=== PATIENT | male | born 2005 | race Caucasian/White ===

== ENCOUNTER 2025-10-03 17:09 | Outpatient (REF) | payer OTHER, SELFPAY ==
--- NOTE | ~2025-10-03 | MR_ITS ---
EXAMINATION: MR SHOULDER WITHOUT CONTRAST, RIGHT CLINICAL INFORMATION: Shoulder pain, instability COMPARISON: None available. TECHNIQUE: MRI of the shoulder without contrast was performed on a high-field scanner. FINDINGS: ROTATOR CUFF: Supraspinatus: Mild tendinosis. Infraspinatus: Intact Teres minor: Subscapularis: Mild tendinosis No muscle atrophy or fatty infiltration. BICEPS: Intact CORACOACROMIAL ARCH: The undersurface of the acromion is mildly curved with no subacromial spur. The acromioclavicular joint is normal. LABRUM/CAPSULE: No displaced labral tear is identified. Inferior capsule is intact GLENOHUMERAL JOINT/MARROW: No evidence of acute fracture. No gross aggressive marrow replacing lesion. Small focus of chondral thinning in the posterior glenoid. Small joint fluid. 7 x 6 mm low signal focus in the inferior joint space, concerning for loose body.. Subcentimeter axillary lymph nodes. MR/MR shoulder RT wo con IMPRESSION: * Mild supraspinatus and subscapularis tendinosis. No measurable tendon tear or retraction is seen. * No displaced labral tear is seen. * Small focus of chondral thinning in the posterior glenoid. * Small glenohumeral joint fluid. 7 x 6 cm low signal focus in the inferior joint space could represent a loose body. Electronically signed by: Tony Stewart MD 10/04/2025 11:17 AM CHRIS
--- OUTSIDE RECORDS SUMMARY | 2025-10-04 13:34 | XMS_ITS | Clinical Summary ---
Author Organization [facility] Address [address] [place] [address] Care Team Providers Care Video Editor Name Role Phone Unavailable Primary Care Provider Unavailabl e Allergies No known active allergies Medications chlorhexidine (PERIDEX) 0.12 % solution Use 15 mL in the mouth or throat in the morning and at bedtime. 480 mL 05/07/2022 Active HYDROcodone-mary grace taminophen (NORCO) 5-325 mg tabletIndicatio ns:pain Take 1 tablet by mouth every 6 (six) hours if needed for severe pain. 12 tablet 05/07/2022 Active Active Problems No known active problems Social History Tobacco Use Types Packs/Day Years Used Date Smoking Tobacco: Never Smokeless Tobacco: Never Tobacco Cessation:Counseling Given: Not Answered Alcohol Use Standard Drinks/Week Comments Never 0 (1 standard drink = 0.6 oz pur e alcohol) Sex and Gender Information Value Date Recorded Sex Assigned at Not on file Legal Sex Male 9:25 AM PDT Gender Identity Not on file Sexual Orientation Not on file Last Filed Vital Signs Vital Sign Reading Time Taken Comments Blood Pressure 122/66 04/20/2023 10:35 AM EDT Pulse 66 04/20/2023 10:35 AM EDT Temperature 36.5 C (97.7 F) 04/25/2022 1:44 PM EDT Respiratory Rate - - Oxygen Saturation - - Inhaled Oxygen Concentration - - Weight - - Height - - Body Mass Index - - Plan of Treatment Health Maintenance Due Date Last Done Comments Velscope Screening 10/25/2022 04/25/2022 Dental Oral Exam 10/21/2023 04/20/2023, 04/25/2022 Dental Prophylaxis 10/21/2023 04/20/2023, 04/25/2022 Dental X-Ray: Bitewings 10/21/2023 04/20/2023 Dental X-Ray: Panoramic 04/26/2025 04/25/2022 Dental X-Ray: Full Mouth 04/21/2026 04/20/2023, 04/16 Procedures Procedure Name Priority Date/Time Associated Diagnosis Comments PROPHYLAXIS - ADULT Routine 04/20/2023 1 0:30 AM EDT PERIODIC ORAL EVALUATION - ESTABLISHED PATIENT Routine 04/20/2023 10:30 AM EDT PANORAMIC RADIOGRAPHIC IMAGE Routine 04/25/2022 1:30 PM EDT ADJUNCTIVE PRE-DIAGNOSTIC TEST THAT AIDS IN DETECTION OF MUCOSAL ABNORMALITIES Routine 04/25/2022 1:30 PM EDT INTRAORAL - COMPREHENSIVE SERIES OF RADIOGRAPHIC IMAGES Routine 04/25/2022 1:30 PM EDT from Last 3 Months or Most Recently Relevant to Health Maintenance Insurance [facility]
--- OUTSIDE RECORDS SUMMARY | 2025-10-04 13:34 | XMS_ITS | Encounter Summary ---
Author Organization [facility] Address [address] [place] [address] Phone Care Team Providers Care Supervisor Mirror Fabrication Name Role Phone Pcp, Unknown Primary Care Provider Unavailabl e Reason for Referral * MRI/CAT Scan - Closed Specialty Diagnoses / Procedures Referred By Contac t Referred To Contact Radiology Diagnoses Pain in right ankle and joints of right foot Procedures MRI Ankle (Right) Rodolfo Juarez DO [address] [place] [address] Phone: tel: fax: mailto: .Family [facility] Referral ID Status Reason Start Date Expiration Date Visits Re quested Visits Authorized [id number] Closed 03/21/2025 03/21/2026 1 1 * MRI/CAT Scan - Closed Specialty Diagnoses / Procedures Referred By Nikhil redd Referred To Contact Radiology Diagnoses Pain in left ankle and joints of left foot Procedures MRI Ankle (Left) Rodolfo Juarez DO [address] [place], [place] Phone: tel: fax: mailto: Referral ID Status Reason Start Date Expiration Date Visits Re quested Visits Authorized [id number] Closed 03/21/2025 03/21/2026 1 1 Encounter Details Date Type Department Care Team (Late st Contact Info) Description 03/21/2025 Transcribe Orders [facility] [address] [place] [address] Rodolfo Juarez DO [address] [place] [address] Pain in left ankle and joints of left foot (Primary Dx); Pain in right ankle and joints of right foot Social History Tobacco Use Types Packs/Day Years Used Date Smoking Tobacco: Never Assessed Education Answer Date Recorded Are you interested in more education? Not on rosendo e 03/21/2025 Are you concerned about learning? Not on file 03/21/2025 No 03/21/2025 No 03/21/2025 Digital Access Answer Date Recorded No 03/21/2025 No 03/21/2025 Reliable internet access at home? Not on file 03/21/2025 Device with a working camera? Not on file Sex and Gender Information Value Date Recorded Sex Assigned at Not on file Legal Sex Male 3:56 PM EDT Gender Identity Not on file Sexual Orientation Not on file documented as of this encounter Plan of Treatment Not on file documented as of this encounter Results * MRI ANKLE WITHOUT CONTRAST (RIGHT) (03/23/2025 8:43 AM EDT) Anatomical Region Laterality Modality Ankle Right Magnetic Resonan ce 03/24/2025 9:22 AM EDT Impressions 03/24/2025 9:58 AM EDT Subcutaneous edema overlying the medial malleolus with possible early bursal formation. No discrete organized fluid collection. Narrative 03/24/2025 9:58 AM EDT MRI ANKLE WITHOUT CONTRAST (RIGHT) Referring clinician's provided indication for this examination in Epic: Outside Radiology Order; right ankle pain TECHNIQUE: Multi-sequence, multi-planar MRI of the ankle without intravenous contrast. COMPARISON: None FINDINGS: Lateral ligaments: Anterior talofibular, calcaneofibular, and posterior talofibular ligaments are intact. Syndesmotic ligaments are intact. Medial ligaments: Deltoid complex and spring ligaments are intact. Plantar fascia: Normal. Peroneal tendons: Peroneus longus and brevis are intact. Flexor tendons: Posterior tibialis, flexor digitorum longus, and flexor hallucis longus are intact. Extensor tendons: Anterior tibialis, extensor hallucis longus, and extensor digitorum longus are intact. Achilles tendon: Normal. Bone: No fracture, osteonecrosis, or suspicious focal lesion. Cystic changes are noted within the posterior aspect of the tibial retromalleolar groove, likely reactive. Joints: Small tibiotalar and subtalar joint effusions without synovitis. No focal cartilage defect or subchondral edema. Soft tissues: Subcutaneous edema is noted overlying the proximal aspect of the medial malleolus. Central punctate fluid may reflect early bursal formation. No discrete organized fluid collection. Procedure Note Jesus Bowman MD - 03/24/2025 MRI ANKLE WITHOUT CONTRAST (RIGHT) Referring clinician's provided indication for this examination in Epic:Outside Radiology Order; right ankle pain TECHNIQUE: Multi-sequence, multi-planar MRI of the ankle withoutintravenous contrast. COMPARISON: None FINDINGS: Lateral ligaments: Anterior talofibular, calcaneofibular, and posteriortalofibular ligaments are intact. Syndesmotic ligaments are intact. Medial ligaments: Deltoid complex and spring ligaments are intact. Plantar fascia: Normal. Peroneal tendons: Peroneus longus and brevis are intact. Flexor tendons: Posterior tibialis, flexor digitorum longus, and flexorhallucis longus are intact. Extensor tendons: Anterior tibialis, extensor hallucis longus, andextensor digitorum longus are intact. Achilles tendon: Normal. Bone: No fracture, osteonecrosis, or suspicious focal lesion. Cysticchanges are noted within the posterior aspect of the tibial retromalleolargroove, likely reactive. Joints: Small tibiotalar and subtalar joint effusions without synovitis.No focal cartilage defect or subchondral edema. Soft tissues: Subcutaneous edema is noted overlying the proximal aspect ofthe medial malleolus. Central punctate fluid may reflect early bursalformation. No discrete organized fluid collection. IMPRESSION: Subcutaneous edema overlying the medial malleolus with possible earlybursal formation. No discrete organized fluid collection. Rodolfo Juarez DO IMG MR EXTREMITY Final Result * MRI ANKLE WITHOUT CONTRAST (LEFT) (03/23/2025 8:39 AM EDT) Anatomical Region Laterality Modality Ankle Left Magnetic Resonan ce 03/24/2025 9:10 AM EDT Impressions 03/24/2025 9:58 AM EDT Findings most suggestive of medial malleolar bursitis. Narrative 03/24/2025 9:58 AM EDT MRI ANKLE WITHOUT CONTRAST (LEFT) Referring clinician's provided indication for this examination in [facility]: Outside Radiology Order; left ankle pain TECHNIQUE: Multi-sequence, multi-planar MRI of the ankle without intravenous contrast. COMPARISON: None FINDINGS: Lateral ligaments: Anterior talofibular, calcaneofibular, and posterior talofibular ligaments are intact. Syndesmotic ligaments are intact. Medial ligaments: Deltoid complex and spring ligaments are intact. Plantar fascia: Normal. Peroneal tendons: Peroneus longus and brevis are intact. Flexor tendons: Posterior tibialis, flexor digitorum longus, and flexor hallucis longus are intact. Extensor tendons: Anterior tibialis, extensor hallucis longus, and extensor digitorum longus are intact. Achilles tendon: Normal. Bone: No fracture, osteonecrosis, or focal lesion. Joints: Small tibiotalar and subtalar joint effusions without synovitis. No focal cartilage defect or subchondral edema. Soft tissues: 2.2 x 0.7 x 3.0 cm multiloculated fluid collection with internal debris within the subcutaneous fat overlying the medial malleolus. There is surrounding subcutaneous edema. Procedure Note Jesus Bowman MD - 03/24/2025 MRI ANKLE WITHOUT CONTRAST (LEFT) Referring clinician's provided indication for this examination in [facility]:Outside Radiology Order; left ankle pain TECHNIQUE: Multi-sequence, multi-planar MRI of the ankle withoutintravenous contrast. COMPARISON: None FINDINGS: Lateral ligaments: Anterior talofibular, calcaneofibular, and posteriortalofibular ligaments are intact. Syndesmotic ligaments are intact. Medial ligaments: Deltoid complex and spring ligaments are intact. Plantar fascia: Normal. Peroneal tendons: Peroneus longus and brevis are intact. Flexor tendons: Posterior tibialis, flexor digitorum longus, and flexorhallucis longus are intact. Extensor tendons: Anterior tibialis, extensor hallucis longus, andextensor digitorum longus are intact. Achilles tendon: Normal. Bone: No fracture, osteonecrosis, or focal lesion. Joints: Small tibiotalar and subtalar joint effusions without synovitis.No focal cartilage defect or subchondral edema. Soft tissues: 2.2 x 0.7 x 3.0 cm multiloculated fluid collection withinternal debris within the subcutaneous fat overlying the medialmalleolus. There is surrounding subcutaneous edema. IMPRESSION: Findings most suggestive of medial malleolar bursitis. Rodolfo Juarez DO IMG MR EXTREMITY Final Result documented in this encounter Visit Diagnoses Diagnosis Pain in left ankle and joints of left foot- Primary Pain in right ankle and joints of right foot Pain in right ankle and joints of right foot Pain in left ankle and joints of left foot documented in this encounter Care Teams Supervisor [employer] Relationship Specialty Start Date End Date Pcp, Unknown PCP - General 03/20/25 documented as of this encounter Additional Source Comments The information contained in this document represents components of the legal health record. It is not the complete legal health record.[facility]
--- OUTSIDE RECORDS SUMMARY | 2025-10-04 13:34 | XMS_ITS | Clinical Summary ---
Author Organization [facility] Address [address] [facility] [address] [place] [id number] Phone Care Team Providers Care C Unix Developer Name Role Phone Pcp, Unknown Primary Care Provider Unavailabl e Social History Tobacco Use Types Packs/Day Years [...] Sign Reading Time Taken Comments Blood Pressure - - Pulse - - Temperature - - Respiratory Rate - - Oxygen Saturation - - Inhaled Oxygen Concentration - - Weight 81.6 kg (180 lb) 03/21/2025 1:03 PM EDT Height 177.8 cm (5' 10 ) 03/21/2025 1:03 PM EDT Body Mass Index 25.83 03/21/2025 1:03 PM EDT Plan of Treatment Not on file Medical Devices Not on file Insurance ELIAN WILKINS [facility] [place] [address] [facility] Care Teams C Unix Developer Relationship Specialty Start Date End Date Pcp, Unknown PCP - General 03/20/25 Additional Source Comments The information contained in this document represents components of the legal health record. It is not the complete legal health record.[facility]
--- OUTSIDE RECORDS SUMMARY | 2025-10-04 13:34 | XMS_ITS | Encounter Summary ---
Author Organization [facility] Address [address] [place] [address] Care Team Providers Care Electrical And Instrument Engineer Name Role Phone Unavailable Primary Care Provider Unavailabl e Prior Encounters Date Type Department Care Team Description 04/20/2023 10:30 AM EDT Office Visit [place] [facility] [address], [facility] [address] [place] [address] Yasmin De Jesus, [facility] 04/20/2023 10:30 AM EDT Office Visit [facility] [address], [facility] [address] [place] [address] Shannon Cano DDS 05/07/2022 Travel 05/07/2022 12:00 PM EDT Office Visit [facility] [address], [facility] [address] [place] [address] Francisco Contreras DMD MD 04/25/2022 Travel 04/25/2022 1:30 PM EDT Office Visit [facility] [address], [facility] [address] [place] [address] Shannon Cano DDS Last Filed Vital Signs Vital Sign Reading Time Taken Comments Blood Pressure 122/66 04/20/2023 10:35 AM EDT Pulse 66 04/20/2023 10:35 AM EDT Temperature 36.5 C (97.7 F) 04/25/2022 1:44 PM EDT Respiratory Rate - - Oxygen Saturation - - Inhaled Oxygen Concentration - - Weight - - Height - - Body Mass Index - - Plan of Treatment Not on file Procedures Procedure Name Priority Date/Time Associated Diagnosis Comments INTRAORAL PHOTO Routine 04/20/2023 10:30 AM EDT INTRAORAL PHOTO Routine 04/20/2023 10:30 AM EDT INTRAORAL PHOTO Routine 04/20/2023 10:30 AM EDT INTRAORAL PHOTO Routine 04/20/2023 10:30 AM EDT BITEWINGS - FOUR RADIOGRAPHIC IMAGES Routine 04/20/2023 10:30 AM EDT ADDITIONAL X-RAY Routine 04/20/2023 10:3 0 AM EDT ADDITIONAL X-RAY Routine 04/20/2023 10:3 0 AM EDT ADDITIONAL X-RAY Routine 04/20/2023 10:3 0 AM EDT ADDITIONAL X-RAY Routine 04/20/2023 10:3 0 AM EDT ADDITIONAL X-RAY Routine 04/20/2023 10:3 0 AM EDT SINGLE X-RAY Routine 04/20/2023 10:30 AM EDT PERIODIC ORAL EVALUATION - ESTABLISHED PATIENT Routine 04/20/2023 10:30 AM EDT PROPHYLAXIS - ADULT Routine 04/20/2023 1 0:30 AM EDT ORAL HYGIENE INSTRUCTIONS Routine 2022 10:30 AM EDT 16 EXTRACTION, ERUPTED TOOTH REQUIRING REMOVAL OF BONE AND/OR SECTIONING OF TOOTH Routine 05/07/2022 12:00 PM EDT 1 EXTRACTION, ERUPTED TOOTH REQUIRING REMOVAL OF BONE AND/OR SECTIONING OF TOOTH Routine 05/07/2022 12:00 PM EDT THERAPEUTIC PARENTERAL DRUG, SINGLE ADMINISTRATION Routine 05/07/2022 12:00 PM EDT DEEP SEDATION/GENERAL ANESTHESIA EACH SUBSEQUENT 15 MINUTE INCREMENT Routine 05/07/2022 12:00 PM EDT DEEP SEDATION/GENERAL ANESTHESIA EACH SUBSEQUENT 15 MINUTE INCREMENT Routine 05/07/2022 12:00 PM EDT DEEP SEDATION/GENERAL ANESTHESIA EACH SUBSEQUENT 15 MINUTE INCREMENT Routine 05/07/2022 12:00 PM EDT 16 PLACEMENT OF INTRA-SOCKET BIOLOGICAL DRESSING TO AID IN HEMOSTASIS OR CLOT STABILIZATION, PER SITE Routine 05/07/2022 12:00 PM EDT 32 PLACEMENT OF INTRA-SOCKET BIOLOGICAL DRESSING TO AID IN HEMOSTASIS OR CLOT STABILIZATION, PER SITE Routine 05/07/2022 12:00 PM EDT DEEP SEDATION/GENERAL ANESTHESIA FIRST 15 MINUTES Routine 05/07/2022 12:00 PM EDT 17 PLACEMENT OF INTRA-SOCKET BIOLOGICAL DRESSING TO AID IN HEMOSTASIS OR CLOT STABILIZATION, PER SITE Routine 05/07/2022 12:00 PM EDT LIMITED ORAL EVALUATION - PROBLEM FOCUSED Routine 05/07/2022 12:00 PM EDT 17 REMOVAL OF IMPACTED TOOTH - PARTIALLY BONY Routine 05/07/2022 12:00 PM EDT 1 PLACEMENT OF INTRA-SOCKET BIOLOGICAL DRESSING TO AID IN HEMOSTASIS OR CLOT STABILIZATION, PER SITE Routine 05/07/2022 12:00 PM EDT 32 REMOVAL OF IMPACTED TOOTH - PARTIALLY BONY Routine 05/07/2022 12:00 PM EDT INTRAORAL PHOTO Routine 04/25/2022 1:30 PM EDT INTRAORAL PHOTO Routine 04/25/2022 1:30 PM EDT INTRAORAL PHOTO Routine 04/25/2022 1:30 PM EDT INTRAORAL PHOTO Routine 04/25/2022 1:30 PM EDT PANORAMIC RADIOGRAPHIC IMAGE Routine 04/25/2022 1:30 PM EDT INTRAORAL - COMPREHENSIVE SERIES OF RADIOGRAPHIC IMAGES Routine 04/25/2022 1:30 PM EDT ADJUNCTIVE PRE-DIAGNOSTIC TEST THAT AIDS IN DETECTION OF MUCOSAL ABNORMALITIES Routine 04/25/2022 1:30 PM EDT COMPREHENSIVE ORAL EVALUATION - NEW OR ESTABLISHED PATIENT Routine 04/25/2022 1:30 PM EDT ORAL HYGIENE INSTRUCTIONS Routine 2021 1:30 PM EDT PROPHYLAXIS - ADULT Routine 04/25/2022 1 :30 PM EDT TOPICAL APPLICATION OF FLUORIDE VARNISH Routine 04/25/2022 1:30 PM EDT 20 DO COMPOSITE FILLING Routine 04/25/20 12:00 AM EDT 18 O COMPOSITE FILLING Routine 12:00 AM EDT 15 O COMPOSITE FILLING Routine 12:00 AM EDT 14 MO COMPOSITE FILLING Routine 04/25/20 12:00 AM EDT 13 D COMPOSITE FILLING Routine 12:00 AM EDT 2 O COMPOSITE FILLING Routine 04/25/2022 12:00 AM EDT 19 PFM CROWN Routine 04/25/2022 12:00 AM EDT 30 PFM CROWN Routine 04/25/2022 12:00 AM EDT Visit Diagnoses Not on file Insurance [facility]
--- OUTSIDE RECORDS SUMMARY | 2025-10-04 13:34 | XMS_ITS | Encounter Summary ---
Author Organization [facility] Address [address] [place] [address] Phone Care Team Providers Care Stator Plate Washer Name Role Phone Pcp, Unknown Primary Care Provider Unavailabl e Encounter Details Date Type Department Care Team (Late st Contact Info) Description 03/21/2025 Procedure Pass [facility], [facility] [address] [place] [address] Social History Tobacco Use Types Packs/Day Years [...] on file documented as of this encounter Visit Diagnoses Not on filedocumented in this encounter Care Teams Stator Plate Washer Relationship Specialty Start Date End Date Pcp, Unknown PCP - General 03/20/25 documented as of this encounter Additional Source Comments The information contained in this document represents components of the legal health record. It is not the complete legal health record.[facility]
--- OUTSIDE RECORDS SUMMARY | 2025-10-04 13:34 | XMS_ITS | Encounter Summary ---
Author Organization [facility] Address [address] [facility] [address] [place] [address] Phone Care Team Providers Care Carton Forming Machine Operator Name Role Phone Pcp, Unknown Primary Care Provider Unavailabl e Encounter Details Date Type Department Care Team (Late st Contact Info) Description 03/21/2025 Procedure Pass [facility], [address] [address] Social History Tobacco Use Types Packs/Day Years [...] on file documented as of this encounter Last Filed Vital Signs Vital Sign Reading Time Taken Comments Blood Pressure - - Pulse - - Temperature - - Respiratory Rate - - Oxygen Saturation - - Inhaled Oxygen Concentration - - Weight 81.6 kg (180 lb) 03/21/2025 1:03 PM EDT Height 177.8 cm (5' 10 ) 03/21/2025 1:03 PM EDT Body Mass Index 25.83 03/21/2025 1:03 PM EDT documented in this encounter Plan of Treatment Not on file documented as of this encounter Visit Diagnoses Not on filedocumented in this encounter Care Teams Carton Forming Machine Operator Relationship Specialty Start Date End Date Pcp, Unknown PCP - General 03/20/25 documented as of this encounter Additional Source Comments The information contained in this document represents components of the legal health record. It is not the complete legal health record.[facility]
== END 2025-10-03 17:10 | disposition home or self-care (01) ==
LOC: HO.MRI 17:09
PROVIDERS: Visit Provider Family Medicine
DX: M25.311 Other instability, right shoulder (principal); M25.511 Pain in right shoulder
CPT/HCPCS: 73221

== ENCOUNTER → 2025-10-03 17:10 | Outpatient (BNV) | payer OTHER, SELFPAY | PROVIDERS: Visit Provider Radiology Diagnostic Ultrasound | DX: M25.511 Pain in right shoulder (principal) | CPT/HCPCS: 73221 ==